=== PATIENT | female | born 2000 | race Caucasian/White ===

== ENCOUNTER 2024-05-24 21:51 | Emergency (ER) | payer OTHER | END 2024-05-24 22:45 | disposition home or self-care (01) | LOC: EDBD 21:51 → NAV ERS 21:51 | DX: J06.9 Acute upper respiratory infection, unspecified (principal); J02.9 Acute pharyngitis, unspecified | CPT/HCPCS: 87081; 87430; 99283 ==

== ENCOUNTER 2024-07-08 20:09 | Emergency (ER) | payer SELFPAY | END 2024-07-08 21:21 | disposition home or self-care (01) | LOC: NAV ERS 20:09 | DX: O99.511 Diseases of the respiratory system complicating pregnancy, first trimester (principal); J10.1 Influenza due to other identified influenza virus with other respiratory manifestations; Z3A.12 12 weeks gestation of pregnancy | CPT/HCPCS: 87400; 87426; 99283 ==